=== PATIENT | male | born 1980 | race African-American/Black ===

== ENCOUNTER 2018-09-27 10:45 | Inpatient (IN) | payer OTHER ==
[2018-09-27 11:16] VITALS: BMI 25.4
--- NOTE | 2018-09-27 13:01 | HP ---
COWS - Scale Resting Pulse: 1= [place] 81-100 Sweatin= Chills/Flushing Restless Observation: 1= Difficult to Sit Still Pupil Size: 0= Normal to Room Light Bone or Joint Aches: 2= Severe Diffuse Aches Runny Nose/ Eye Tearin= Nasal Congestion GI Upset > 30mins: 1= Stomach Cramp Tremor Observation: 1= Tremor [place], Not Seen Yawning Observation: 1= 1-2x During Session Anxiety or Irritability: 1=Feels Anxious/Irritable Goose Flesh Skin: 0=Smooth Skin COWS Score: 10 Admission ROS S - HPI Chief Complaint: "Truthfully speaking, due to my parole" Allergies/Adverse Reactions: Allergies Allergy/AdvReac Type Severity Reaction Status Date / Time No Known Drug Allergies Allergy Verified 09/27/18 12:20 History of Present Illness: 38 y/o male presents here for detox from heroin. Pt states he went to senior care in 1998 when he was 19 and started to use heroin when he was 22. States he was sober on and off in senior care "2 out of 10 yrs I was sober". Pt got out of senior care in March 12, this is his first visit here. Stated he was mandated by his public relations officer to seek treatment when he saw him yesterday. Last used heroin yesterday Hx of Graves' hx for which he takes Methimazole and Atenolol (to control his HR ) - not sure about compliance. Hx of PTSD, Depression & mood d/o (on Remeron, Wellbutrin & Vistaril but states he is non - compliant). Admits to suicide attempt in 2008 (by hanging). Denies Current SI/HI Exam Limitations: Intoxication (Pt somnolent throughout examination, responds appropriately to questions but provider has to repeatedly stimulate him by calling his name.) - Ebola screening Have you traveled outside of the country in the last 21 days: No (N) Have you had contact with anyone from an Ebola affected area: No Have you been sick,other than usual withdrawal symptoms: No Do you have a fever: No - Review of Systems Constitutional: Changes in sleep, Unintentional Wgt. Loss EENT: reports: No Symptoms Reported Respiratory: reports: No Symptoms reported Cardiac: reports: No Symptoms Reported : reports: No Symptoms Reported Musculoskeletal: reports: Back Pain Integumentary: reports: No Symptoms Reported Neuro: reports: No Symptoms reported Endocrine: reports: No Symptoms Reported Hematology: reports: No Symptoms Reported Psychiatric: reports: Orientated x3, Agitated Other Systems: Reviewed and Negative Patient History - Patient Medical History Hx Asthma: No Hx Chronic Obstructive Pulmonary Disease (COPD): No Hx Cardiac Disorders: No Hx Hypertension: Yes (ON HYPER) Hx Seizures: No Hx Diabetes: No Hx Gastrointestinal Disorders: No Hx Genitourinary Disorders: No Hx Sexually Transmitted Disorders: No Hx Renal Disease (ESRD): No Hx Depression: Yes Hx Suicide Attempt: No Hx Schizophrenia: No - Patient Surgical History Past Surgical History: No Hx Neurologic Surgery: No Hx Cataract Extraction: No Hx Cardiac Surgery: No Hx Lung Surgery: No Hx Breast Surgery: No Hx Breast Biopsy: No Hx Abdominal Surgery: No Hx Appendectomy: No Hx Cholecystectomy: No Hx Genitourinary Surgery: No Hx Section: No Hx Orthopedic Surgery: No Anesthesia Reaction: No - PPD History Previous Implant?: No - Smoking Cessation Smoking history: Never smoked Have you smoked in the past 12 months: No Hx Chewing Tobacco Use: No - Substances Abused Heroin Route: Inhalation Frequency: Daily Amount used: 1 BAG Age of first use: 22 Date of Last Use: 09/26/18 Cocaine Route: Inhalation Frequency: 1-2 times per week Amount used: $20 Age of first use: 20 Date of Last Use: 09/26/18 Marijuana/Hashish Route: Smoking Frequency: 1-3 times last 30 days Amount used: 1 BLUNT Age of first use: 21 Date of Last Use: 09/26/18 Family Disease History - Family Disease History Family History: Unremarkable Admission Physical Exam S - Vital Signs Vital Signs: Vital Signs - 24 hr 09/27/18 11:13 Temperature 97.6 F Pulse Rate 86 Respiratory 18 Rate Blood Pressure 121/78 - Physical General Appearance: Yes: Appropriately Dressed, Irritable HEENTM: Yes: Within Normal Limits Respiratory: Yes: Within Normal Limits, Lungs Clear, Normal Breath Sounds, No Respiratory Distress, No Accessory Muscle Use Neck: Yes: Within Normal Limits, No masses,lesions,Nodules, Trachea in good position Breast: Yes: Breast Exam Deferred Cardiology: Yes: Within Normal Limits, Regular Rate Abdominal: Yes: Within Normal Limits, Non Tender Genitourinary: Yes: Within Normal Limits Back: Yes: Within Normal Limits Musculoskeletal: Yes: full range of Motion, Gait Steady Extremities: Yes: Normal Capillary Refill, Normal Inspection, Normal Range of Motion, Non-Tender Neurological: Yes: Fully Oriented, Alert, Other (sllepy) Integumentary: Yes: Within Normal Limits Lymphatic: Yes: Within Normal Limits - Diagnostic (1) Uncomplicated opioid abuse with intoxication Current Visit: Yes Status: Acute (2) Cocaine dependence Current Visit: Yes Status: Chronic (3) Marijuana abuse Current Visit: Yes Status: Chronic (4) Graves disease Current Visit: Yes Status: Chronic Cleared for Admission [facility] - Detox or Rehab [facility] Level of Care: Medically Managed Detox Regimen/Protocol: Methadone [facility] Breath Alcohol Content Breath Alcohol Content: 0 Urine Drug Screen - Results Drug Screen Negative: No Urine Drug Screen Results: THC-Marijuana, HUANG-Cocaine, OPI-Opiates
[2018-09-27] MEDS ORDERED: MAG HYDROX/AL HYDROX/SIMETH 30 ML UNIT-DOSE CUP PO PRN (13:42)
[2018-09-27] MEDS ORDERED: MAGNESIUM HYDROX 2400MG/30ML ORAL SUSPENSION 30 ML CUP PO PRN (13:42)
[2018-09-27] MEDS ORDERED: IBUPROFEN 400 MG TABLET (FP) PO PRN (13:42)
[2018-09-27] MEDS ORDERED: guaiFENesin/D-METHORPHAN HB 10 ML UNIT-DOSE CUPS PO PRN (13:42)
[2018-09-27] MEDS ORDERED: P-EPHED 60MG/TRIPROLIDI 2.5MG TABLET PO PRN (13:42)
[2018-09-27] MEDS ORDERED: ACETAMINOPHEN 325 MG TABLET (FP) PO PRN (13:42)
[2018-09-27] MEDS ORDERED: LOPERAMIDE HCL 2 MG CAPSULE PO PRN (13:42)
[2018-09-27] MEDS ORDERED: MENTHOL/PHENOL 1 EACH UD MM PRN (13:42)
[2018-09-27] MEDS ORDERED: MAGNESIUM CITRATE 300 ML BOTTLE PO PRN (13:42)
[2018-09-27] MEDS ORDERED: METHADONE HCL 10 MG TABLET (FOR DETOX USE ONLY) PO ONE ×2 (14:00→23:00)
[2018-09-27] MEDS ORDERED: METHADONE HCL 10 MG TABLET (FOR DETOX USE ONLY) ONE (18:43)
[2018-09-27] MEDS: diazePAM 5 MG TABLET PO PRN ×2 (18:51→23:13)
[2018-09-27 19:20] LABS: URINE APPEARANCE SLCLOUDY; URINE BILIRUBIN NEGATIVE (<2.0 mg/dL); URINE COLOR LTYELLOW; URINE GLUCOSE (UA) NEGATIVE (NEGATIVE); URINE KETONE NEGATIVE (NEGATIVE); URINE LEUK ESTERASE 1+ (NEGATIVE); URINE NITRITE NEGATIVE (NEGATIVE); URINE PROTEIN NEGATIVE (NEGATIVE); URINE UROBILINOGEN NEGATIVE mg/dL (0.2-1.0)
[2018-09-27 19:42] LABS: URINE BACTERIA RARE /hpf (NONE SEEN); URINE MUCUS RARE
[2018-09-27] MEDS: METHIMAZOLE 10 MG TABLET (FP) PO SCH (23:13)
[2018-09-27] MEDS: THIAMINE HCL 100 MG TABLET (FP) PO SCH (23:13)
--- NOTE | 2018-09-28 06:50 | CONSULT ---
[facility] Psychiatric Consult - Data Date of interview: 09/28/18 Admission source: [place] Identifying data: Mr Padilla is a 38 years old male seeking detox treament for opioid, cocaine and cannabis Substance Abuse History: Reports history of heroin, cocaine and marijuana use. Refer to addiction counselor's summary for further information Medical History: Signififant for hypertension and graves disease
[2018-09-28] MEDS ORDERED: METHADONE HCL 10 MG TABLET (FOR DETOX USE ONLY) PO ONE (10:00)
[2018-09-28 10:42] LABS: HEMATOCRIT 40.9 % (35.4-49); HEMOGLOBIN 14.7 GM/dL (11.7-16.9); MCH 31.6 pg (25.7-33.7); MCHC 35.9 g/dl (32.0-35.9); MEAN CELL VOLUME 87.9 fl (80-96); MEAN PLT VOLUME 7.7 fl (7.5-11.1); PLATELET COUNT 286 K/MM3 (134-434); RBC 4.65 M/mm3 (4.00-5.60); RDW 13.4 % (11.9-15.9); WHITE BLOOD COUNT 3.8 K/mm3 (4.0-10.0)
[2018-09-28 10:53] LABS: ALBUMIN 3.2 g/dl (3.4-5.0); ALK PHOS 73 U/L (45-117); ANION GAP 6 MMOL/L (8-16); BILIRUBIN,TOTAL 0.4 mg/dL (0.2-1); BLOOD UREA NITROGEN 9 mg/dL (7-18); CALCIUM 8.7 mg/dL (8.5-10.1); CHLORIDE 106 mmol/L (98-107); CO2 28 mmol/L (21-32); CREATININE 0.8 mg/dL (0.55-1.3); GLUCOSE,RANDOM 80 mg/dL (74-106); POTASSIUM 4.4 mmol/L (3.5-5.1); SGOT/AST 15 U/L (15-37); SGPT/ALT 27 U/L (13-61); SODIUM 140 mmol/L (136-145); TOT PROT 6.3 g/dl (6.4-8.2)
--- NOTE | 2018-09-28 11:35 | EKG ---
Test Reason : Blood Pressure : / mmHG Vent. Rate : 075 BPM Atrial Rate : 075 BPM P-R Int : 186 ms QRS Dur : 078 ms QT Int : 364 ms P-R-T Axes : 070 078 072 degrees QTc Int : 406 ms NORMAL SINUS RHYTHM NONSPECIFIC ST ABNORMALITY ABNORMAL ECG NO PREVIOUS ECGS AVAILABLE Confirmed by ZE CARMICHAEL MD ([id number]) on 09/28/2018 11:35:25 AM Referred By: Confirmed By:ZE CARMICHAEL MD
[2018-09-28] MEDS: METHIMAZOLE 10 MG TABLET (FP) PO SCH ×2 (12:32→22:17)
[2018-09-28] MEDS: PRENATAL VITAMINS W/ FOLIC ACID TABLET (FP) PO SCH (12:33)
[2018-09-28] MEDS: ATENOLOL 25 MG TABLET (FP) PO SCH (12:33)
--- NOTE | 2018-09-28 13:18 | PN ---
[facility] Progress Note Note: Patient could not be seen because he is too sleepy
--- NOTE | 2018-09-28 17:28 | PN ---
[facility] COWS - Scale Resting Pulse: 0= HI 80 or Below Sweatin= Chills/Flushing Restless Observation: 3= Extraneous Movement Pupil Size: 0= Normal to Room Light Bone or Joint Aches: 2= Severe Diffuse Aches Runny Nose/ Eye Tearin= Runny Nose/Eyes GI Upset > 30mins: 3= Vomiting/Diarrhea Tremor Observation of Outstretched Hands: 2= Slight Tremor Visible Yawning Observation: 1= 1-2x During Session Anxiety or Irritability: 2=Irritable/Anxious Goose Flesh Skin: 0=Smooth Skin COWS Score: 16 [facility] Progress Note (SOAP) Subjective: Interrupted sleep, anxious, agitated. Patient c/o throat feeling swollen and denies sore throat. Patient requesting his thyroid medication but already received it as scheduled. Patient denies any sob or any problem with breathing. As per patient, he doesn't know how long his throat has been feeling swollen. Objective: 09/28/18 17:24 Last Vital Signs Temp Pulse Resp BP Pulse Ox 97.8 F 73 18 112/74 09/28/18 13:52 09/28/18 13:52 09/28/18 13:52 09/28/18 13:52 PE: Throat: no pharyngeal erythema or exudates Neck: supple, FROM, no lymphadenopathy, thyroid feels enlarged Assessment: 09/28/18 17:25 Withdrawal symptoms Plan: Continue detox Encouraged PO water intake Continue tapazole for graves disease, send TSH in AM, follow up with PCP post discharge Simethicone prn for gas (patient stated he wants to burp and unable to do so), encouraged hot tea
[2018-09-28] MEDS ORDERED: SIMETHICONE 80 MG TAB.CHEW (FP) PO PRN (17:30)
[2018-09-28] MEDS: THIAMINE HCL 100 MG TABLET (FP) PO SCH (22:19)
[2018-09-28] MEDS: MELATONIN 5 MG TABLETS PO PRN (23:11)
[2018-09-29] MEDS ORDERED: METHADONE HCL 5 MG TABLET (FOR DETOX USE ONLY) PO ONE (10:00)
[2018-09-29] MEDS: PRENATAL VITAMINS W/ FOLIC ACID TABLET (FP) PO SCH (10:42)
[2018-09-29] MEDS: ATENOLOL 25 MG TABLET (FP) PO SCH (10:43)
[2018-09-29] MEDS: METHIMAZOLE 10 MG TABLET (FP) PO SCH ×2 (10:43→22:09)
--- NOTE | 2018-09-29 15:25 | PN ---
S COWS - Scale Resting Pulse: 0= [place] 80 or Below Sweatin= Chills/Flushing Restless Observation: 3= Extraneous Movement Pupil Size: 0= Normal to Room Light Bone or Joint Aches: 1= Mild Discomfort Runny Nose/ Eye Tearin= None GI Upset > 30mins: 2= Nausea/Diarrhea Tremor Observation of Outstretched Hands: 2= Slight Tremor Visible Yawning Observation: 1= 1-2x During Session Anxiety or Irritability: 2=Irritable/Anxious Goose Flesh Skin: 0=Smooth Skin COWS Score: 12 S Progress Note (SOAP) Subjective: Interrupted sleep, sweating, anxious Objective: 09/29/18 15:23 Last Vital Signs Temp Pulse Resp BP Pulse Ox 97.0 F L 73 18 136/83 09/29/18 13:33 09/29/18 13:33 09/29/18 13:33 09/29/18 13:33 Laboratory Tests 09/27/18 09/28/18 09/28/18 15:35 07:44 07:44 WBC 3.8 L RBC 4.65 Hgb 14.7 Hct 40.9 MCV 87.9 MCH 31.6 MCHC 35.9 RDW 13.4 Plt Count 286 MPV 7.7 Sodium 140 Potassium 4.4 Chloride 106 Carbon Dioxide 28 Anion Gap 6 L BUN 9 Creatinine 0.8 Creat Clearance w eGFR > 60 Random Glucose 80 Calcium 8.7 Total Bilirubin 0.4 AST 15 ALT 27 Alkaline Phosphatase 73 Total Protein 6.3 L Albumin 3.2 L TSH Urine Color Ltyellow Urine Appearance Slcloudy Urine pH 8.0 Ur Specific [place] 1.006 L Urine Protein Negative Urine Glucose (UA) Negative Urine Ketones Negative Urine Blood Negative Urine Nitrite Negative Urine Bilirubin Negative Urine Urobilinogen Negative Ur Leukocyte Esterase 1+ H Urine WBC (Auto) 8 Urine RBC (Auto) 1 Urine Bacteria Rare Urine Mucus Rare RPR Titer 09/28/18 09/29/18 07:44 06:15 WBC RBC Hgb Hct MCV MCH MCHC RDW Plt Count MPV Sodium Potassium Chloride Carbon Dioxide Anion Gap BUN Creatinine Creat Clearance w eGFR Random Glucose Calcium Total Bilirubin AST ALT Alkaline Phosphatase Total Protein Albumin TSH < 0.01 L Urine Color Urine Appearance Urine pH Ur Specific [place] Urine Protein Urine Glucose (UA) Urine Ketones Urine Blood Urine Nitrite Urine Bilirubin Urine Urobilinogen Ur Leukocyte Esterase Urine WBC (Auto) Urine RBC (Auto) Urine Bacteria Urine Mucus RPR Titer Nonreactive Labs reviewed Assessment: 09/29/18 15:24 Withdrawal symptoms Plan: Continue detox Encouraged PO water intake
[2018-09-29] MEDS: THIAMINE HCL 100 MG TABLET (FP) PO SCH (22:08)
[2018-09-29] MEDS: MELATONIN 5 MG TABLETS PO PRN (22:09)
[2018-09-30] MEDS: diazePAM 5 MG TABLET PO PRN (06:39)
[2018-09-30] MEDS ORDERED: METHADONE HCL 5 MG TABLET (FOR DETOX USE ONLY) PO ONE (10:00)
[2018-09-30] MEDS ORDERED: METHADONE HCL 10 MG TABLET (FOR DETOX USE ONLY) PO ONE (10:35)
[2018-09-30] MEDS: PRENATAL VITAMINS W/ FOLIC ACID TABLET (FP) PO SCH (10:51)
[2018-09-30] MEDS: ATENOLOL 25 MG TABLET (FP) PO SCH (10:51)
[2018-09-30] MEDS: METHIMAZOLE 10 MG TABLET (FP) PO SCH ×2 (10:51→22:30)
--- NOTE | 2018-09-30 14:01 | PN ---
[facility] Progress Note (SOAP) Subjective: Agitated, anxious, interrupted sleep Objective: 09/30/18 14:00 Last Vital Signs Temp Pulse Resp BP Pulse Ox 97.0 F L 75 18 111/73 09/30/18 13:52 09/30/18 13:52 09/30/18 13:52 09/30/18 13:52 Laboratory Tests 09/27/18 09/28/18 09/28/18 15:35 07:44 07:44 WBC 3.8 L RBC 4.65 Hgb 14.7 Hct 40.9 MCV 87.9 MCH 31.6 MCHC 35.9 RDW 13.4 Plt Count 286 MPV 7.7 Sodium 140 Potassium 4.4 Chloride 106 Carbon Dioxide 28 Anion Gap 6 L BUN 9 Creatinine 0.8 Creat Clearance w eGFR > 60 Random Glucose 80 Calcium 8.7 Total Bilirubin 0.4 AST 15 ALT 27 Alkaline Phosphatase 73 Total Protein 6.3 L Albumin 3.2 L TSH Urine Color Ltyellow Urine Appearance Slcloudy Urine pH 8.0 Ur Specific [place] 1.006 L Urine Protein Negative Urine Glucose (UA) Negative Urine Ketones Negative Urine Blood Negative Urine Nitrite Negative Urine Bilirubin Negative Urine Urobilinogen Negative Ur Leukocyte Esterase 1+ H Urine WBC (Auto) 8 Urine RBC (Auto) 1 Urine Bacteria Rare Urine Mucus Rare RPR Titer 09/28/18 09/29/18 07:44 06:15 WBC RBC Hgb Hct MCV MCH MCHC RDW Plt Count MPV Sodium Potassium Chloride Carbon Dioxide Anion Gap BUN Creatinine Creat Clearance w eGFR Random Glucose Calcium Total Bilirubin AST ALT Alkaline Phosphatase Total Protein Albumin TSH < 0.01 L Urine Color Urine Appearance Urine pH Ur Specific [place] Urine Protein Urine Glucose (UA) Urine Ketones Urine Blood Urine Nitrite Urine Bilirubin Urine Urobilinogen Ur Leukocyte Esterase Urine WBC (Auto) Urine RBC (Auto) Urine Bacteria Urine Mucus RPR Titer Nonreactive Labs reviewed Assessment: 09/30/18 14:00 Withdrawal symptoms Plan: Continue detox Encouraged PO water intake
[2018-09-30] MEDS ORDERED: hydrOXYzine PAMOATE 50 MG CAPSULE (FP) PO PRN (15:33)
--- NOTE | 2018-09-30 16:32 | CONSULT ---
[facility] Psychiatric Consult - Data Date of interview: 09/30/18 Admission source: [facility] Identifying data: First admission to [facility] for this 38 y/o AA male seeking detoxification treatment on for heroin and cannabis dependence. Patient is single, a father of one, domiciled and reportedly self-employed. Mandated to enter treatment by his chief technology officer. Substance Abuse History: Confirmed by the patient in this interview. Details in current [facility] report : Smoking history: Never smoked. Have you smoked in the past 12 months: No. Hx Chewing Tobacco Use: No. - Substances Abused. Heroin. Route: Inhalation. Frequency: Daily. Amount used: 1 BAG. Age of first use: 22. Date of Last Use: 09/26/18. Cocaine. Route: Inhalation. Frequency: 1-2 times per week. Amount used: $20. Age of first use: 20. Date of Last Use: 09/26/18. Marijuana/Hashish. Route: Smoking. Frequency: 1-3 times last 30 days. Amount used: 1 BLUNT. Age of first use: 21. Date of Last Use: 09/26/18 Medical History: HHypertension and Graves disease (on methimazole). Psychiatric History: Patient admits to a previous psychiatric hospitalization ( 2008) during his incarceration (suicide attempt by hanging). Diagnosed with PTSD , Anxiety Disorder and Bipolar Disorder. Mr Padilla states that he used to be managed on a regimen of risperdal + wellbutrin + remeron. Non-adherent to OPD care/medications for months. Dropped out of treatment in 2015 (stopped going to his assigned community mental health clinic in [facility]). Physical/Sexual Abuse/Trauma History: Trauma history : years of incarceration. Additional Comment: Urine Drug Screen Results: THC-Marijuana, HUANG-Cocaine, OPI- Opiates. Noted. Mental Status Exam - Mental Status Exam Alert and Oriented to: Time, Place, Person Cognitive Function: Good Patient Appearance: Well Groomed (short stature, muscular built) Mood: Nervous, Hopeful Affect: Mood Congruent Patient Behavior: Fatigued, Cooperative Speech Pattern: Clear, Appropriate Voice Loudness: Normal Thought Process: Goal Oriented Thought Disorder: Not Present Hallucinations: Denies Suicidal Ideation: Denies Homicidal Ideation: Denies Insight/Judgement: Poor Sleep: Poorly, Difficulty falling asleep Appetite: Good Muscle strength/Tone: Normal Gait/Station: Normal Psychiatric Findings - Problem List ([place] 1, 2,3) (1) Opioid dependence, uncomplicated Current Visit: Yes Status: Acute (2) Cannabis dependence Current Visit: Yes Status: Chronic (3) Cocaine dependence Current Visit: Yes Status: Chronic (4) Substance induced mood disorder Current Visit: Yes Status: Acute (5) Insomnia Current Visit: Yes Status: Acute - Initial Treatment Plan Initial Treatment Plan: Psychoeducation. Sleep hygiene. Detoxification. Psychotherapy (individual, group, supportive). Resources available for relapse prevention (AA/NA fellowships, FDA-approved formulations, counseling) are discussed with the patient. medications : wellbutrin 75 mg po daily + remeron 15 mg po hs. Side effects/benefits of both drugs are discussed with patient. Mr Padilla agrees to this plan of care. Observation.
[2018-09-30] MEDS ORDERED: MIRTAZAPINE 15 MG TABLET (FP) PO SCH (22:00)
[2018-09-30] MEDS ORDERED: buPROPion HCL 75 MG TABLET PO SCH (22:00)
[2018-09-30] MEDS ORDERED: risperiDONE 1 MG TABLET (FP) PO SCH (22:00)
[2018-09-30] MEDS: THIAMINE HCL 100 MG TABLET (FP) PO SCH (22:30)
[2018-10-01] MEDS ORDERED: METHADONE HCL 5 MG TABLET (FOR DETOX USE ONLY) PO ONE (06:00)
[2018-10-01 09:14] VITALS: BP 115/66; PULSE 83; TEMP 96.8
[2018-10-01] MEDS: PRENATAL VITAMINS W/ FOLIC ACID TABLET (FP) PO SCH (09:48)
[2018-10-01] MEDS: METHIMAZOLE 10 MG TABLET (FP) PO SCH (09:48)
[2018-10-01] MEDS: ATENOLOL 25 MG TABLET (FP) PO SCH (09:48)
[2018-10-01] MEDS ORDERED: METHADONE HCL 10 MG TABLET (FOR DETOX USE ONLY) PO ONE (10:00)
[2018-10-01] MEDS ORDERED: buPROPion HCL 75 MG TABLET PO SCH (10:00)
--- NOTE | 2018-10-01 11:28 | DS ---
[facility] Detox Discharge Summary Admission Date: 09/27/18 Discharge Date: 10/01/18 - History Present History: Cannabis Dependence, Cocaine Dependence, Opioid Dependence Additional Comments: Patient is A/A/Ox3, in nad, ambulatory. Patient with periods of outburst/ agitation. Patient mandated by his correction officer reformatory for detox and rehab due to chronic cocaine and cannabis use. As per patient, he doesn't want to stay 28 days in rehab as he believed that his insurance will not pay for 28 days but he agreed to complete rehab for the period of time he will be admitted. Packing House Laborer encouraged patient to have an outpatient psychotherapist to help him with anger management. As per patient, he completed an anger management program for 90 days and it didn't help him. Patient is very much aware that he needs help with anger management. Patient to follow up with his correction officer reformatory after completion of rehab. Pertinent Past History: Opioid dependence Cocaine dependence Cannabis dependence Graves disease - Physical Exam Results Vital Signs: Vital Signs Temperature 96.8 F L 10/01/18 09:14 Pulse Rate 83 10/01/18 09:14 Respiratory Rate 18 10/01/18 09:14 Blood Pressure 115/66 10/01/18 09:14 O2 Sat by Pulse Oximetry (%) Pertinent Admission Physical Exam Findings: Withdrawal symptoms Laboratory Tests 09/27/18 09/28/18 09/28/18 15:35 07:44 07:44 WBC 3.8 L RBC 4.65 Hgb 14.7 Hct 40.9 MCV 87.9 MCH 31.6 MCHC 35.9 RDW 13.4 Plt Count 286 MPV 7.7 Sodium 140 Potassium 4.4 Chloride 106 Carbon Dioxide 28 Anion Gap 6 L BUN 9 Creatinine 0.8 Creat Clearance w eGFR > 60 Random Glucose 80 Calcium 8.7 Total Bilirubin 0.4 AST 15 ALT 27 Alkaline Phosphatase 73 Total Protein 6.3 L Albumin 3.2 L TSH Urine Color Ltyellow Urine Appearance Slcloudy Urine pH 8.0 Ur Specific [place] 1.006 L Urine Protein Negative Urine Glucose (UA) Negative Urine Ketones Negative Urine Blood Negative Urine Nitrite Negative Urine Bilirubin Negative Urine Urobilinogen Negative Ur Leukocyte Esterase 1+ H Urine WBC (Auto) 8 Urine RBC (Auto) 1 Urine Bacteria Rare Urine Mucus Rare RPR Titer 11/04/18 11/05/18 07:44 06:15 WBC RBC Hgb Hct MCV MCH MCHC RDW Plt Count MPV Sodium Potassium Chloride Carbon Dioxide Anion Gap BUN Creatinine Creat Clearance w eGFR Random Glucose Calcium Total Bilirubin AST ALT Alkaline Phosphatase Total Protein Albumin TSH < 0.01 L Urine Color Urine Appearance Urine pH Ur Specific [place] Urine Protein Urine Glucose (UA) Urine Ketones Urine Blood Urine Nitrite Urine Bilirubin Urine Urobilinogen Ur Leukocyte Esterase Urine WBC (Auto) Urine RBC (Auto) Urine Bacteria Urine Mucus RPR Titer Nonreactive Labs reviewed - Treatment Hospital Course: Detox Protocol Followed, Detoxed Safely, Responded well, Discharged Condition Good, Rehab Referral Accepted - Medication Discharge Medications: Ambulatory Orders Atenolol [Tenormin -] 25 mg PO DAILY 09/27/18 Methimazole 10 mg PO BID 09/27/18 Bupropion HCl [Wellbutrin -] 1 tab PO HS 09/30/18 Mirtazapine [Remeron -] 1 tab PO HS 09/30/18 Risperidone [Risperdal] 1 tab PO BID 09/30/18 hydrOXYzine PAMOATE [Vistaril -] 1 cap PO TID 09/30/18 - Diagnosis (1) Opioid dependence, uncomplicated Current Visit: Yes Status: Acute (2) Cannabis dependence Current Visit: Yes Status: Chronic (3) Flatulence Current Visit: Yes Status: Acute (4) Cocaine dependence Current Visit: Yes Status: Chronic (5) Graves disease Current Visit: Yes Status: Chronic - AMA Did Patient Leave Against Medical Advice: No (Patient accepted admission to [facility] rehab, [facility])
[2018-10-02] MEDS ORDERED: METHADONE HCL 5 MG TABLET (FOR DETOX USE ONLY) PO ONE (06:00)
== END 2018-10-01 15:01 | disposition home or self-care (01) | DRG 773 ==
LOC: YASAS 10:45 → Y3N 13:54
PROC: HZ2ZZZZ Detoxification Services for Substance Abuse Treatment (ICD-10-PCS; principal; 2018-09-27)
DX: F11.23 Opioid dependence with withdrawal (principal); F14.20 Cocaine dependence, uncomplicated; F12.20 Cannabis dependence, uncomplicated; F19.24 Other psychoactive substance dependence with psychoactive substance-induced mood disorder; I10 Essential (primary) hypertension; E05.00 Thyrotoxicosis with diffuse goiter without thyrotoxic crisis or storm; R14.3 Flatulence; G47.00 Insomnia, unspecified; Z59.0 Homelessness
CPT/HCPCS: 36415; 80053; 81003; 81015; 84443; 85027; 86593; 93005; 93010